=== PATIENT | male | born 1960 | race Caucasian/White ===

== ENCOUNTER 2019-11-28 04:05 | Emergency (ER) | payer OTHER ==
[~2019-11-28] VITALS: Ht 180.3 cm; Wt 117.5 kg
[2019-11-28] MEDS ORDERED: ALLEGRA ALLERG180 MG PO (04:19)
[2019-11-28] MEDS ORDERED: CLARITIN10 M3 PO (04:20)
[2019-11-28] MEDS ORDERED: FLONASE 0.05%50 MCG NARES (04:21)
[2019-11-28 05:19] LABS: ABSOLUTE EOSINOPHILS 0.2 thou/uL (0.0-0.7); ABSOLUTE LYMPHOCYTES 1.2 thou/uL (0.8-5.3); ABSOLUTE MONOCYTES 0.4 thou/uL (0.0-1.2); ABSOLUTE NEUTROPHILS 5.8 thou/uL (1.6-8.1); BASOPHILS 0.4 %; EOSINOPHILS 2.2 %; HEMOGLOBIN 15.5 gm/dL (14.0-18.0); LYMPHOCYTES 16.1 %; MCH 32.9 pg (26.0-34.0); MCV 91.4 fL (80.0-100.0); MONOCYTES 4.8 %; MPV 7.9 fl. (7.2-11.1); NUCLEATED RBCS 0 /100WBC; PLATELET COUNT* 187 thou/uL (150-400); POLYS 76.5 %; RBC 4.71 mil/uL (4.50-6.00); RDW-CV 12.8 % (10.5-14.5); WBC 7.6 thou/uL (4.0-11.0)
[2019-11-28 05:27] LABS: URINE BILIRUBIN NEGATIVE (Negative); URINE BLOOD NEGATIVE (Negative); URINE CLARITY CLEAR; URINE COLOR YELLOW; URINE GLUCOSE-RANDOM NEGATIVE (Negative); URINE KETONES TRACE (Negative); URINE LEUKOCYTES-REFLEX NEGATIVE (Negative); URINE NITRITE-REFLEX NEGATIVE (Negative); URINE PROTEIN NEGATIVE (Negative); URINE UROBILINOGEN 0.2 E.U./dl (0.2-1.0)
[2019-11-28 05:28] LABS: APTT 27.4 Seconds (25.0-31.3); CALCIUM 8.4 mg/dL (8.5-10.1); CREATININE 0.9 mg/dL (0.6-1.3); PROTIME 10.4 Seconds (9.20-11.50)
[2019-11-28 05:39] LABS: ALBUMIN 3.8 g/dL (3.4-5.0); TOTAL BILIRUBIN 0.5 mg/dL (<0.1-1.0)
[2019-11-28 06:19] VITALS: BP 165/95
--- NOTE | 2019-11-28 10:19 | EKG ---
[place] [address] ELECTROCARDIOGRAM REPORT Name: PATRICKJESSICAMEHDI FELICIANO Room: [facility]#: [id number] Admission: 11/28/19 Attend Phys: Discharge: 11/28/19 Date of : 58 Date of Service: 11/28/19 0417 Report #: [id number] THIS REPORT FOR: //name// [facility] ED Test Date: 2019-11-28 Test Time: 04:17:41 Pat Name: JESSICA NGUYEN Department: Room: Gender: Convention Planner: : 1960 Requested By: Brad Castrejon Order Number: [id number] MD: Rafi Fuentes Measurements Intervals [place] Rate: 79 P: 34 VT: 173 QRS: -26 QRSD: 101 T: 28 QT: 389 QTc: 447 Interpretive Statements Sinus rhythm Borderline left axis deviation RSR' in V1 or V2, right VCD or RVH No previous ECG available for comparison Electronically Signed On 11-28-2019 10:19:33 CDT by Rafi Fuentes [email or web address] <ELECTRONICALLY SIGNED> By: Rafi Fuentes MD, [facility] 11/28/19 1019 0417 0417 Rafi Fuentes MD, [facility] /EPI
== END 2019-11-28 06:20 | disposition home or self-care (01) ==
LOC: M.ERS 04:05
PROVIDERS: Family Medicine
DX: I10 Essential (primary) hypertension (principal); R00.2 Palpitations; Z88.8 Allergy status to other drugs, medicaments and biological substances

== ENCOUNTER 2020-09-07 23:14 | Inpatient (IN) | payer OTHER ==
[~2020-09-07] VITALS: Ht 27.9 cm; Wt 133.8 kg
[~2020-09-07 23:14] MED LIST: ALLEGRA ALLERG180 MG PO; CLARITIN10 M3 PO; FLONASE 0.05%50 MCG NARES
[2020-09-07 23:45] VITALS: BP 179/96
[2020-09-07 23:49] LABS: ABSOLUTE EOSINOPHILS 0.2 thou/uL (0.0-0.7); ABSOLUTE LYMPHOCYTES 2.6 thou/uL (0.8-5.3); ABSOLUTE MONOCYTES 0.6 thou/uL (0.0-1.2); ABSOLUTE NEUTROPHILS 4.4 thou/uL (1.6-8.1); BASOPHILS 0.5 %; CREATININE 1.1 mg/dL (0.6-1.3); EOSINOPHILS 2.4 %; HEMATOCRIT 41.5 % (42.0-52.0); LYMPHOCYTES 33.4 %; MCH 33.2 pg (26.0-34.0); MCHC 36.1 g/dL (28.0-37.0); MCV 91.9 fL (80.0-100.0); MONOCYTES 7.7 %; MPV 7.9 fl. (7.2-11.1); NUCLEATED RBCS 0 /100WBC; PLATELET COUNT* 194 thou/uL (150-400); POTASSIUM 3.3 mmol/L (3.5-5.1); RBC 4.52 mil/uL (4.50-6.00); RDW-CV 12.9 % (10.5-14.5); WBC 7.9 thou/uL (4.0-11.0)
[2020-09-07] MEDS ORDERED: VERAPAMIL E.R240 M1 PO (23:55)
[2020-09-07] MEDS ORDERED: KATERZIA1 MG/1 ML PO (23:55)
[2020-09-07] MEDS ORDERED: CHLORTHALIDONE25 MG PO (23:56)
[2020-09-08] VITALS (22 sets, daily range): BP systolic 100–181; BP diastolic 44–101
[2020-09-08] LABS: ALBUMIN 3.7 g/dL (3.4-5.0); TOTAL BILIRUBIN 0.5 mg/dL (<0.1-1.0); TOTAL PROTEIN 7.5 g/dL (6.4-8.2)
--- NOTE | 2020-09-08 00:24 | NUR ---
STEMI ACTIVATED AT 2323. SEE STEMI FLOWSHEET
[2020-09-08 08:36] LABS: ANION GAP 16 mmol/L (7-16); BUN 22 mg/dL (7-18); CALCIUM 8.3 mg/dL (8.5-10.1); CHLORIDE 103 mmol/L (98-107); CHOLESTEROL 174 mg/dL (<200); CO2 20 mmol/L (21-32); CREATININE 1.1 mg/dL (0.6-1.3); GLUCOSE 172 mg/dL (70-99); HDL CHOLESTEROL 40 mg/dL (>40); LDL CHOLESTEROL 93 mg/dL (<100); POTASSIUM 3.8 mmol/L (3.5-5.1); SODIUM 139 mmol/L (136-145); TC:HDL 4.4 Ratio (Not establshd); TRIGLYCERIDE 206 mg/dL (<150); VLDL 41 mg/dL (<40)
[2020-09-08 08:39] LABS: SERUM ASSESSMENT Clear
--- NOTE | 2020-09-08 13:09 | NUR ---
Spoke with patient and (Marlen/"Argenis") at bedside and introduced role of CM. Patient admitted for Stemi. Went to cath lab manager this morning and 2 stents were placed. Patient lives at home in a house with his . There are 2 stairs to enter the home from the garage. There are more stairs inside however the patients bedroom is on the main level. Patient was independent with ADLs prior to admisson. Patient was working and driving. No hx of DME, O2, HH, Rehab/SNF, dialysis, BHS or infusion therapy. PCP is Bello Nick ([place], [place]). Tentative discharge planned for tomorrow with outpatient follow up with cardiology. Patient will need another stent. No dc needs anticipated. CM to continue to follow
--- NOTE | 2020-09-08 14:28 | 2DMMODE ---
[place] [address] 2 D/M-MODE ECHOCARDIOGRAM Name: JESSICA NGUYEN Room: [facility] ADM IN M.Gina.#: [id number] Admission: 09/08/20 Attend Phys: Natasha Sanders Discharge: Date of : 58 Date of Service: 09/08/20 1427 Report #: [id number] THIS REPORT FOR: cc: FAM - No family physician/PCP FAM - No family physician/PCP Rafi Fuentes MD [facility] ~ APPROVED REPORT Study performed: 09/08/2020 09:21:39 EXAM: Comprehensive 2D, Doppler, and color-flow Echocardiogram Patient Location: In-Patient Room #: 005 Status: routine BSA: 2.49 HR: 84 bpm BP: 131/80 mmHg Rhythm: NSR Other Information Study Quality: Good Indications Acute FL 2D Dimensions IVSd: 11.61 (7-11mm) LVOT Diam: 19.92 (18-24mm) LVDd: 48.91 mm PWd: 9.53 (7-11mm) Ascending Ao: 32.20 (22-36mm) LVDs: 25.21 (25-40mm) Aortic Root: 34.94 mm Volumes Left Atrial Volume (Systole) LA ESV Index: 26.80 mL/m2 Aortic Valve AoV Peak William.: 1.73 m/s AO Peak Gr.: 11.96 mmHg LVOT Max P.85 mmHg AO Mean Gr.: 6.30 mmHg LVOT Mean P.06 mmHg LVOT Max V: 1.57 m/s AO V2 VTI: 29.75 cm LVOT Mean V: 1.04 m/s CHEN (VTI): 3.01 cm2 LVOT V1 VTI: 28.76 [place] [address] 2 D/M-MODE ECHOCARDIOGRAM Name: JESSICA NGUYEN Room: [address] IN ..#: [id number] Admission: 09/08/20 Attend Phys: Natasha Sanders Discharge: Date of : 58 Date of Service: 09/08/20 1427 Report #: [id number] Mitral Valve E/A Ratio: 0.84 MV Decel. Time: 219.63 ms MV E Max William.: 0.82 m/s MV PHT: 63.69 ms MVA (PHT): 3.45 cm2 TDI E/Lateral E': 5.47 E/Medial E': 8.20 Medial E' William.: 0.10 m/s Lateral E' William.: 0.15 m/s Pulmonary Valve PV Peak William.: 1.20 m/s PV Peak Gr.: 5.77 mmHg Left Ventricle The left ventricle is normal size. There is normal LV segmental wall motion. There is normal left ventricular wall thickness. The left ventricular systolic function is normal. The left ventricular ejection fraction is within the normal range. LVEF is 60-65%. Grade I - abnormal relaxation pattern. Right Ventricle The right ventricle is normal size. The right ventricular systolic function is normal. Atria The left atrium size is normal. The right atrium size is normal. Aortic Valve The aortic valve is normal in structure. No aortic regurgitation is present. There is no aortic valvular stenosis. Mitral Valve The mitral valve is normal in structure. There is no mitral valve regurgitation noted. No evidence of mitral valve stenosis. Tricuspid Valve The tricuspid valve is normal in structure. Trace tricuspid regurgitation. Unable to assess PA pressure. Pulmonic Valve Pulmonic valve is not well [place] [address] 2 D/M-MODE ECHOCARDIOGRAM Name: JESSICA NGUYEN Room: [address] IN [facility]#: [id number] Admission: 09/08/20 Attend Phys: Natasha Sanders Discharge: Date of : 58 Date of Service: 09/08/20 1427 Report #: [id number] The aortic root is normal in size. IVC is normal in size and collapses >50% with inspiration. Pericardium There is no pericardial effusion. <Conclusion> The left ventricular systolic function is normal. The left ventricular ejection fraction is within the normal range. <ELECTRONICALLY SIGNED> By: Rafi Fuentes MD, [facility] 09/08/20 1427 142 142 Rafi Fuentes MD, FAC /INF
--- NOTE | 2020-09-08 14:59 | EKG ---
[place] [address] ELECTROCARDIOGRAM REPORT Name: PATRICKJESSICAMEHDI FELICIANO Room: [address] ADM IN M.R.#: [id number] Admission: 09/08/20 Attend Phys: Natasha Sanders Discharge: Date of : 58 Date of Service: 09/08/20 1041 Report #: [id number] THIS REPORT FOR: //name// [facility] Test Date: 2020-09-08 Test Time: 10:41:42 Pat Name: JESSICA NGUYEN Department: Room: [facility] Gender: M Service Center Assistant: THERESE : 1960 Requested By: Benjamin Moyer Order Number: [id number] Reading MD: Rafi Fuentes Measurements Intervals [place] Rate: 91 P: 47 MD: 181 QRS: -22 QRSD: 110 T: 44 QT: 369 QTc: 455 Interpretive Statements Sinus rhythm Ventricular premature complex Borderline left axis deviation Compared to ECG 11/28/2019 04:17:41 Ventricular premature complex(es) now present Electronically Signed On 09-08-2020 14:59:37 CDT by Rafi Fuentes [email or web address] <ELECTRONICALLY SIGNED> By: Rafi Fuentes MD, FAC 09/08/20 1459 1041 1041 Rafi Fuentes MD, [facility] /EPI
--- NOTE | 2020-09-08 16:55 | CARD ---
[address] [address] CARDIAC CATH REPORT Name: JESSICA NGUYEN Room: [address] IN .R.#: [id number] Admission: 09/08/20 Attend Phys: Benjamin Moyer MD, Discharge: Date of : 58 Report #: [id number] THIS REPORT FOR: cc: FAM - No family physician/PCP FAM - No family physician/PCP Benjamin Moyer MD [facility] ~ APPROVED REPORT Study performed: 09/07/2020 23:50:38 Patient Details Patient Status: ED Room #: The patient is a 60 year-old male Event Personnel Benjamin Moyer Marshmallow Maker, Luana Lechuga RN Pararescue Craftsman, Ada Johnston RTR Monitor, Naila Tsang RTR Scrub Procedures Performed Art Access - R femoral artery , Left Heart Cath w/or w/o Coronaries LHC , STEMI/AMI ALEXANDER Place w/wo Plasty Single RPLA , Hemostasis w/ Mynx Indication STEMI Risk Factors Hypercholesterolemia, Hypertension Admission/Lab Medications/Medications given during procedure Benadryl IV 50 mg, Solumedrol IV 125 mg, Angiomax IV 19.5 ml, Angiomax Drip IV 44.6 ml per hr, Effient PO 60 mg, Aspirin PO 162 mg Procedure Narrative The patient was brought emergently to the Cardiac Catheterization Laboratory and was prepped and draped in a sterile manner. The right femoral was infiltrated with 2% Lidocaine subcutaneous anesthesia. IV conscious sedation was used throughout procedure with appropriate monitoring and was performed in the presence of a registered nurse who was an independent trained observer other than the physician performing the procedure. A 6F Ultimum sheath was inserted into the right femoral artery. Coronary [place] [address] CARDIAC CATH REPORT Name: PATRICKJESSICAMEHDI FELICIANO Room: [address]#: [id number] Admission: 09/08/20 Attend Phys: Benjamin Moyer MD, Discharge: Date of : 58 Report #: [id number] coronary diagnostic catheters. The right coronary system was accessed and visualized with a 6F JR4 catheter. The left coronary system was accessed and visualized with a 6F JL4 catheter. The left ventricle was accessed and visualized with a 6F Pigtail catheter. Left ventricular/Aortic Valve gradient assessed via catheter pullback. Pre-demployment femoral angiogram was performed . Closure device was deployed with a 6 Fr Mynx. The patient tolerated the procedure well and there were no complications associated with the procedure. There was no hematoma. Intraoperative Conscious Sedation Sedation start time: 12:23 am Case end Time: 01:04 am Fentanyl 25 mcg Versed 2 mg Fluoro Time: 13.4 minutes Dose: DAP 060822 cGycm2 3049 mGy Contrast Type and Amount: Visipaque 300 ml Coronary Angiography The patient's coronary anatomy is right dominant. Diagnostic Cath Left Main 0% narrowing LAD 80% tubular mid vessel stenosis with 75% tubular proximal first diagonal stenosis Circumflex Nondominant vessel with 30% proximal and distal narrowing Right Coronary Large dominant vessel with 40% proximal narrowing and 100% occlusion of the proximal portion of the prominent postero- lateral branch of the distal right coronary artery Left Ventriculography Left Ventriculography was not performed. Hemodynamics The aortic pressure is 137/75 mmHg with a mean of 102 mmHg. The left ventricular pressure is 137/1 mmHg with a mean of mmHg. The left ventricular end diastolic pressure is 18 mmHg. There was no gradient across the aortic valve upon pullback. PCI Technique Lesion Anticoagulation was achieved with Angiomax. Percutaneous coronary intervention was performed on the Postero- lateral branch of the distal right coronary artery. [place] [address] CARDIAC CATH REPORT Name: JESSICA NGUYEN Room: [address]#: [id number] Admission: 09/08/20 Attend Phys: Benjamin Moyer MD, Discharge: Date of : 58 Report #: [id number] intervention was 100% with TIGRE 0 flow. A 6F JR 4.0 Guide Catheter was used to engage the right ostium. A BMW 190cm Interventional Guidewire was used to cross the lesion. BALLOON DILATION A Balloon catheter Mini Trek RX 2.0 X 12 was inserted and inflated up to 12.00atm for 10seconds. Additional Inflation: 12.00atm for 6seconds. Additional Inflation: 14.00atm for 15seconds. STENT DEPLOYMENT A drug-eluting stent Elliot RX Stent 2.0X15mm was inserted and inflated up to 12.00atm for 11seconds. Additional Inflation: 15.00atm for 12seconds. Additional Inflation: 17.00atm for 10seconds. A drug-eluting stent Elliot RX Stent 2.31x05oj was inserted and inflated up to 15 rita for 16 seconds; and 17 rita for 11 seconds. Final angiography reveals 0 % stenosis with TIGRE 3 flow. Conclusion 1. Acute inferior wall STEMI 2. Significant multivessel coronary artery disease characterized by the following: A 40% proximal right coronary narrowing with 100% occlusion of the proximal portion of the postero- lateral branch of the distal right coronary artery B 80% tubular mid LAD stenosis with 75% tubular first diagonal stenosis C 30% proximal and distal narrowing of the nondominant circumflex 2. Moderate elevation of left ventricular end-diastolic pressure at rest 3 successful PCI with deployment of sequential drug-eluting stents at the site of 100% occlusion in the postero- lateral branch of the dominant right coronary artery with 0% residual narrowing following stent deployment no residual thrombus and TIGRE-3 flow to the distal vessel Recommendations [place] [address] CARDIAC CATH REPORT Name: JESSICA NGUYEN Room: [address] IN M..#: [id number] Admission: 09/08/20 Attend Phys: Benjamin Moyer MD, Discharge: Date of : 58 Report #: [id number] Aggressive Medical Therapy Medications Administered Aspirin (any) Prasugrel Diagnostic Cath Approved by: Benjamin Moyer MD Date/Time: 09/08/2020 16:50:30 <ELECTRONICALLY SIGNED> By: Benjamin Moyer MD, FACC 09/08/20 1654 1654 1654Jocasey Moyer MD, FACC /INF
--- NOTE | 2020-09-08 17:03 | EKG ---
[place] [address] ELECTROCARDIOGRAM REPORT Name: JESSICA NGUYEN Room: [address] ADM IN M.R.#: [id number] Admission: 09/08/20 Attend Phys: Natasha Sanders Discharge: Date of : 58 Date of Service: 09/07/20 2321 Report #: [id number] THIS REPORT FOR: //name// [facility] ED Test Date: 2020-09-07 Test Time: 23:21:02 Pat Name: JESSICA NGUYEN Department: Room: [facility] Gender: M Spring Inspector: [facility] : 1960 Requested By: Elidia Hunt Order Number: [id number] MD: Alfredito Kitchen Measurements Intervals [place] Rate: 94 P: 69 NC: 172 QRS: 51 QRSD: 99 T: 81 QT: 366 QTc: 458 Interpretive Statements Sinus rhythm Inferior infarct, acute (RCA) Probable RV involvement, suggest recording right precordial leads Baseline wander in lead(s) II,III,aVF Compared to ECG 11/28/2019 04:17:41 Myocardial infarct finding now present Right ventricular hypertrophy no longer present Electronically Signed On 09-08-2020 17:03:23 CDT by Alfredito Kitchen [email or web address] <ELECTRONICALLY SIGNED> By: Alfredito Kitchen MD, [facility] 09/08/20 1703 20 232 Alfredito Kitchen MD, [facility] /EPI
--- NOTE | 2020-09-08 20:03 | NUR ---
PT TX TO ROOM 101 VIA WC FROM ICU AT APPROX 1600, REPORT RECEIVED FROM CARLOS SIERRA. PT AOX4, NO C/O CHEST PAIN, AD ESTEPHANIA, IN ROOM AND UPDATED ON POC. PT ORIENTED TO ROOM AND CALL LIGHT, GOAL IS TO REMAIN FREE FROM CHEST PAIN, SHOULD DC TOMORROW
[2020-09-09 02:07] LABS: GLYCOHEMOGLOBIN (HGB A1C) 5.8 % (4.8-5.6)
[2020-09-09 04:15] VITALS: BP 131/73
--- NOTE | 2020-09-09 05:21 | NUR ---
ASSUMED CARE OF PT AFTER REPORT AT 1930. PT A&OX4. VSS. PYSICAL ASSESSMENT COMPLETED AND CHARTED. PT ON RA. PT TRACING SR ON TELE. PT UPADLIB TO RESTROOM. POST CATH SITE TO RIGHT GROIN C/D/I. PT DENIES ANY PAIN. CALL LIGHT WITHIN REACH.
[2020-09-09 05:38] LABS: HEMATOCRIT 36.5 % (42.0-52.0); MCHC 35.7 g/dL (28.0-37.0); MCV 92.4 fL (80.0-100.0); MPV 8.1 fl. (7.2-11.1); RBC 3.95 mil/uL (4.50-6.00); RDW-CV 13.1 % (10.5-14.5); WBC 12.5 thou/uL (4.0-11.0)
[2020-09-09 06:15] LABS: CALCIUM 8.2 mg/dL (8.5-10.1); POTASSIUM 3.5 mmol/L (3.5-5.1); TOTAL BILIRUBIN 0.4 mg/dL (<0.1-1.0); TOTAL PROTEIN 6.5 g/dL (6.4-8.2)
[2020-09-09 07:49] VITALS: BP 114/60
[2020-09-09] MEDS ORDERED: EFFIENT10 MG PO (08:07)
[2020-09-09] MEDS ORDERED: LIPITOR40 MG PO (08:08)
[2020-09-09] MEDS ORDERED: METOPROLOL TART25 MG PO (08:08)
[2020-09-09] MEDS ORDERED: BAYER CHEWABLE81 MG PO (08:10)
[2020-09-09] MEDS ORDERED: LISINOPRIL10 MG PO (08:49)
[2020-09-09 10:32] VITALS: BP 114/60
[2020-09-09 11:49] VITALS: BP 114/60
--- NOTE | 2020-09-09 12:03 | EKG ---
[place] [address] ELECTROCARDIOGRAM REPORT Name: JESSICA NGUYEN Room: [address] ADM IN M.R.#: [id number] Admission: 09/08/20 Attend Phys: Natasha Sanders Discharge: Date of : 58 Date of Service: 09/09/20 0348 Report #: [id number] THIS REPORT FOR: //name// [facility] Test Date: 2020-09-09 Test Time: 03:48:50 Pat Name: JESSICA NGUYEN Department: Room: [facility] Gender: M Dip Painter: FANI : 1960 Requested By: Benjamin Moyer Order Number: [id number] Reading MD: Alfredito Kitchen Measurements Intervals [place] Rate: 66 P: 59 [place]: 188 QRS: -16 QRSD: 104 T: 9 QT: 389 QTc: 408 Interpretive Statements Sinus rhythm Borderline left axis deviation Baseline wander in lead(s) V4 Compared to ECG 09/08/2020 10:41:42 Ventricular premature complex(es) no longer present Electronically Signed On 09-09-2020 12:03:17 CDT by Alfredito Kitchen [email or web address] <ELECTRONICALLY SIGNED> By: Alfredito Kitchen MD, FACC 09/09/20 1203 0348 0348 Alfredito Kitchen MD, FAC /EPI
[2020-09-09 12:27] LABS: ABSOLUTE EOSINOPHILS 0.1 thou/uL (0.0-0.7); ABSOLUTE MONOCYTES 0.9 thou/uL (0.0-1.2); ABSOLUTE NEUTROPHILS 9.5 thou/uL (1.6-8.1); BASOPHILS 0.4 %; EOSINOPHILS 0.4 %; HEMATOCRIT 38.2 % (42.0-52.0); HEMOGLOBIN 13.6 gm/dL (14.0-18.0); LYMPHOCYTES 15.9 %; MCH 33.2 pg (26.0-34.0); MCHC 35.6 g/dL (28.0-37.0); MCV 93.3 fL (80.0-100.0); MONOCYTES 7.3 %; MPV 8.4 fl. (7.2-11.1); NUCLEATED RBCS 0 /100WBC; PLATELET COUNT* 204 thou/uL (150-400); RBC 4.09 mil/uL (4.50-6.00); RDW-CV 13.1 % (10.5-14.5); WBC 12.5 thou/uL (4.0-11.0)
--- NOTE | 2020-09-09 14:40 | NUR ---
Reviewed discharge teaching with patient and ; verbalized understanding. IVs and security monitor dc'd. Discharged from unit per WC.
--- NOTE | 2020-09-09 15:01 | NUR ---
PLAN OF CARE: PHYSICIAN INFORMS OF PLAN FOR THE PT TO D/C HOME TODAY WITH SELF-CARE. NO CM D/C PLANNING NEEDS ANTICIPATED. CM WILL REMAIN AVAILABLE TO ASSIST AND FOLLOW NEEDED.
--- NOTE | 2020-09-15 09:13 | H ---
[place] [address] HISTORY AND PHYSICAL Name: JESSICA NGUYEN Room: [address] IN M.R.#: [id number] Admission: 09/08/20 Attend Phys: Benjamin Moyer MD, Discharge: 09/09/20 Date of : 58 Report #: [id number] THIS REPORT FOR: cc: FAM - No family physician/PCP FAM - No family physician/PCP Benjamin Moyer MD [facility] ~ ADMIT DATE: 09/08/2020 HISTORY OF PRESENT ILLNESS: The patient is a very pleasant 60-year-old male with hypertension and obesity. On Tuesday evening, he noted mild chest tightness, which abated. This evening at approximately 10:30-10:45, he developed severe central chest tightness and sought evaluation in the [facility] ER. He was noted to have significant chest tightness and EKG revealed evidence for acute inferior wall myocardial infarction with ST segment elevation in the inferior leads. The pain persisted despite aspirin and heparin. I was asked to see the patient in this context. At the time of my assessment, he continued to have significant chest discomfort. He denies shortness of breath or nausea. There was no diaphoresis. Risk factors include hypertension. He denies diabetes, cigarette smoking, known lipid disorder, or family history of premature coronary disease in the first-degree relatives at premature ages. There is no known peripheral vascular disease. He is on muti-agent antihypertensive therapy including amlodipine, verapamil and chlorthalidone. PAST MEDICAL HISTORY: Remarkable for: 1. Hypertension. 2. Obesity. SOCIAL HISTORY: He is . He is a nonsmoker. PHYSICAL EXAMINATION: GENERAL: Reveals a moderately distressed middle-aged male, who is overweight. VITAL SIGNS: Blood pressure is 140/70, pulse rate is 78 and regular, respirations are 18 per minute. Jugular venous pressure is normal. CHEST: Clear. CARDIAC: Reveals normal first and second heart sounds with an S4 gallop without rubs or murmurs. ABDOMEN: Obese. EXTREMITIES: Without edema and intact femoral, [place] [address] HISTORY AND PHYSICAL Name: JESSICA NGUYEN Room: [address]#: [id number] Admission: 09/08/20 Attend Phys: Benjamin Moyer MD, Discharge: 09/09/20 Date of : 58 Report #: [id number] LABORATORY DATA: EKG reveals acute inferior wall injury. IMPRESSION: 1. Acute inferior wall ST segment elevation myocardial infarction. 2. Coronary artery disease. 3. Hypertension. 4. Anxiety. 5. Obesity. PLAN: Given his data, I elected to proceed with cardiac catheterization, which revealed total occlusion of the distal right coronary artery and posterolateral branch with TIGRE 0 flow to that distal circulation. There was 80% tubular mid LAD narrowing and 75% proximal first diagonal stenosis. There was 30% mid circumflex narrowing, this being a nondominant vessel. I elected to proceed with PCI, deploying 2 drug-eluting stents in the distal right coronary artery with 0% residual narrowing at the site of previous total occlusion with TIGRE 3 flow in the distal vessel. No residual thrombus. The patient was placed on Angiomax and it was continued 2 hours post-procedurally. He was started on dual antiplatelet therapy, statin, DENNIS inhibition and beta blockade and transferred to the ICU. Critical care time is 40 minutes from 0100 to 0140 on 09/08/2020. <ELECTRONICALLY SIGNED> By: Benjamin Moyer MD, FACC 09/15/20 0913 0041 [id number] Moyer MD, FACC /nt
== END 2020-09-09 14:40 | disposition home or self-care (01) | DRG 246 ==
LOC: M.ERS 23:14 → M.TBA-CV 09-08 00:07 → M.CL 09-08 00:07 → M.ERS 09-08 00:07 → M.TBA-ER 09-08 01:29 → M.ORTHSURG 09-08 01:29 → M.ICU 09-08 01:29 → M.ORTHSURG 09-08 16:46
PROVIDERS: Emergency Medicine; Internal Medicine; Registered Nurse; ADMIT Internal Medicine; ATTEND Internal Medicine
PROC: 027035Z Dilation of Coronary Artery, One Artery with Two Drug-eluting Intraluminal Devices, Percutaneous Approach (ICD-10-PCS; principal; 2020-09-08)
PROC: B211YZZ Fluoroscopy of Multiple Coronary Arteries using Other Contrast (ICD-10-PCS; principal; 2020-09-08)
PROC: 4A023N7 Measurement of Cardiac Sampling and Pressure, Left Heart, Percutaneous Approach (ICD-10-PCS; principal; 2020-09-08)
DX: I21.19 ST elevation (STEMI) myocardial infarction involving other coronary artery of inferior wall (principal); I50.31 Acute diastolic (congestive) heart failure; I11.0 Hypertensive heart disease with heart failure; I25.10 Atherosclerotic heart disease of native coronary artery without angina pectoris; F41.9 Anxiety disorder, unspecified; E66.9 Obesity, unspecified; R73.9 Hyperglycemia, unspecified; E78.5 Hyperlipidemia, unspecified; Z79.899 Other long term (current) drug therapy

== ENCOUNTER 2020-09-17 09:16 | Observation (INO) | payer OTHER ==
[~2020-09-17] VITALS: Ht 180.3 cm; Wt 127.0 kg
[2020-09-17] VITALS (13 sets, daily range): BP systolic 109–134; BP diastolic 64–81
--- NOTE | ~2020-09-17 | H ---
[address] [address] HISTORY AND PHYSICAL Name: JESSICA NGUYEN JODIE Room: [address] Nicole Quintana#: [id number] Admission: 09/17/20 Attend Phys: Benjamin Moyer MD, Discharge: 09/18/20 Date of : 58 Report #: [id number] THIS REPORT FOR: cc: Bello Finnegan MD, Bruce D. MD [facility],Medical Records Staff ~ Please refer to the History and Physical performed in the physician's office. By: [id number] Records Staff [facility] /FINA
[~2020-09-17 09:16] MED LIST changes: +BAYER CHEWABLE81 MG PO; +CHLORTHALIDONE25 MG PO; +EFFIENT10 MG PO; +KATERZIA1 MG/1 ML PO; +LIPITOR40 MG PO; +LISINOPRIL10 MG PO; +METOPROLOL TART25 MG PO; +VERAPAMIL E.R240 M1 PO
[2020-09-17 09:52] LABS: HEMATOCRIT 38.9 % (42.0-52.0); HEMOGLOBIN 13.9 gm/dL (14.0-18.0); MCH 33.3 pg (26.0-34.0); MCHC 35.8 g/dL (28.0-37.0); MCV 92.9 fL (80.0-100.0); RBC 4.18 mil/uL (4.50-6.00); RDW-CV 12.7 % (10.5-14.5); WBC 8.8 thou/uL (4.0-11.0)
[2020-09-17 10:01] LABS: CALCIUM 8.3 mg/dL (8.5-10.1); CREATININE 1.2 mg/dL (0.6-1.3); POTASSIUM 4.2 mmol/L (3.5-5.1)
[2020-09-17 10:06] LABS: ALBUMIN 3.6 g/dL (3.4-5.0); TOTAL BILIRUBIN 0.5 mg/dL (<0.1-1.0); TOTAL PROTEIN 6.9 g/dL (6.4-8.2)
[2020-09-17 10:47] LABS: PROTIME 10.3 Seconds (9.20-11.50)
--- NOTE | 2020-09-17 14:06 | CARD ---
[address] [address] CARDIAC CATH REPORT Name: JESSICA NGUYEN Room: [address] Nicole Quintana#: [id number] Admission: 09/17/20 Attend Phys: Benjamin Moyer MD, Discharge: Date of : 58 Report #: [id number] THIS REPORT FOR: cc: Bello Finnegan MD, Bruce D. MD Holkins,Benjamin Bergeron MD [facility] ~ APPROVED REPORT Study performed: 09/17/2020 11:10:32 Patient Details Patient Status: Out-Patient Room #: The patient is a 60 year-old male Event Personnel Naila Tsang RTR Scrub, Se Monet RTR Monitor, Jaja Elmore RN RN, Benjamin Moyer Automation Architect Procedures Performed Left Heart Cath w/or w/o Coronaries [id number] [facility] w/wo Plasty Single LAD 778191 [facility] Place w/wo Plasty Addl BR DIAG 1 C9601 DESADDL Hemostasis w/ Angioseal Indication Unstable angina Risk Factors Obesity, Hypercholesterolemia, Hypertension Previous Procedures/Diagnoses Previous PCI, Previous MA Admission/Lab Medications/Medications given during procedure Fentanyl IV 25 mcg, Midazolam (Versed) IV 2 mg, Lidocaine Subcut 20 ml, Angiomax IV 19 ml, Angiomax IV 24.55 ml per hr, Midazolam (Versed) IV 1 mg, Aspirin PO 81 mg, Effient PO 30 mg Procedure Narrative The patient was brought electively to the Cardiac Catheterization Laboratory and was prepped and draped in a sterile manner. The right femoral was infiltrated with 2% Lidocaine subcutaneous anesthesia. IV conscious sedation was used throughout procedure with appropriate monitoring and was performed in the presence of a registered nurse who was an independent trained observer [place] [address] CARDIAC CATH REPORT Name: PATRICKJESSICAMEHDI FELICIANO Room: [address] Nicole Quintana#: [id number] Admission: 09/17/20 Attend Phys: Benjamin Moyer MD, Discharge: Date of : 58 Report #: [id number] performing the procedure. A [place] 6 FR sheath was inserted into the right femoral artery. Coronary angiography was performed using coronary diagnostic catheters. The right coronary system was accessed and visualized with a Diagnostic JR4 6Fr catheter. The left coronary system was accessed and visualized with a Diagnostic JL4 6Fr catheter. The left ventricle was accessed and visualized with a Diagnostic Pigtail 6Fr catheter. Left ventricular/Aortic Valve gradient assessed via catheter pullback. Pre-demployment femoral angiogram was performed . Closure device was deployed with a 6 Fr Angioseal. The patient tolerated the procedure well and there were no complications associated with the procedure. There was no hematoma. Intraoperative Conscious Sedation Sedation start time: 1126 Case end Time: 1230 Fentanyl 100 mcg Versed 5 mg Fluoro Time: 17.8 minutes Dose: DAP 041557 cGycm2 3060.23 mGy Contrast Type and Amount: Visipaque 315 ml Coronary Angiography The patient's coronary anatomy is right dominant. Diagnostic Cath Left Main 0% narrowing LAD 90% tubular mid vessel stenosis with 75% tubular first diagonal narrowing and multiple 50% distal LAD narrowings Circumflex Nondominant vessel with 30% mid vessel narrowing Right Coronary Large dominant vessel with 50% proximal narrowing and a widely patent postero- lateral branch stent Left Ventriculography Left Ventriculography was not performed. Hemodynamics The aortic pressure is 147/55 mmHg with a mean of 79 mmHg. The left ventricular pressure is 112/3 mmHg with a mean of mmHg. The left ventricular end diastolic pressure is 16 mmHg. There was no gradient across the aortic valve upon pullback. PCI Technique Lesion Anticoagulation was achieved with Angiomax. [place] [address] CARDIAC CATH REPORT Name: JESSICA NGUYEN [address]: [address] [id number] Admission: 09/17/20 Attend Phys: Benjamin Moyer MD, Discharge: Date of : 58 Report #: [id number] intervention was performed on the mid left anterior descending artery segment. The lesion stenosis prior to intervention was 90% with TIGRE 3 flow. A 6F XB LAD 3.5 Guide Catheter was used to engage the Left ostium. A IG: ProwaterFlex 180CM Interventional Guidewire was used to cross the lesion. BALLOON DILATION A Balloon catheter Trek RX 2.5 X 15 was inserted and inflated up to 16.00atm for 12seconds. Additional Inflation: 16.00atm for 11seconds. Additional Inflation: 16.00atm for 9seconds. STENT DEPLOYMENT A drug-eluting stent Elliot RX Stent 3.0X22mm was inserted and inflated up to 15.00atm for 14seconds. Additional Inflation: 18.00atm for 11seconds. Additional Inflation: 20.00atm for 9seconds. Final angiography reveals 0 % stenosis with TIGRE 3 flow. COMMENTS The PCI was technically complex by virtue of the LAD/diagonal bifurcation disease. This required wiring of both vessels, significant lesion preparation, and deployment of drug-eluting stents in both the parent LAD and first diagonal branch. PCI Technique Lesion 2 Percutaneous Coronary Intervention was performed on the first diagnonal branch segment. The lesion stenosis prior to intervention was 75% with TIGRE 3 flow. A 6F XB LAD 3.5 Guide Catheter was used to engage the Left ostium. A IG: BMW 190cm Interventional Guidewire was used to cross the lesion. Balloon Dilation A Balloon catheter Euphora SC 2.25x12 was inserted and inflated up to 12.00atm for 12seconds. Stent Deployment A drug-eluting stent [place] RX Stent 2.5X15mm was inserted and inflated up to 10.00atm for 11seconds. Additional Inflation: 12.00atm for 10seconds. Additional Inflation: 15.00atm for 8seconds. Final angiography reveals 10 % stenosis with TIGRE [address] Conclusion [address] [address] CARDIAC CATH REPORT Name: JESSICA NGUYEN Room: [place] [address] ADM Rivera M.R.#: [id number] Admission: 09/17/20 Attend Phys: Benjamin Moyer MD, Discharge: Date of : 58 Report #: [id number] 1. Significant coronary artery disease characterized by the following: A 90% tubular mid LAD stenosis with 75% tubular first diagonal narrowing and multiple 50% distal LAD narrowings B 30% narrowing of the midportion of the nondominant circumflex C 50% proximal right coronary narrowing, this being a dominant vessel with widely patent postero- lateral branch stent 2. Mild elevation of left ventricular end-diastolic pressure at rest 3. Successful PCI with deployment of a drug-eluting stent at the site of 90% tubular mid LAD stenosis with 0% residual narrowing and TIGRE-3 flow to the distal vessel 4. Successful PCI with deployment of drug-eluting stent at the site of 75% first diagonal branch stenosis with 10% residual narrowing and TIGRE-3 flow to the distal vessel Recommendations Cardiac Risk Reduction Program Aggressive Medical Therapy Medications Administered Aspirin (any) Prasugrel Diagnostic Cath Approved by: Benjamin Moyer MD Date/Time: 09/17/2020 13:59:50 <ELECTRONICALLY SIGNED> By: Benjamin Moyer MD, [facility] 09/17/20 1406 1406 1406Benjamin Moyer MD, FAC /INF
--- NOTE | 2020-09-17 14:22 | EKG ---
[place] [address] ELECTROCARDIOGRAM REPORT Name: PATRICKJESSICAMEHDI FELICIANO Room: [address] M.R.#: [id number] Admission: 09/17/20 Attend Phys: Natasha Sanders Discharge: Date of : 58 Date of Service: 09/17/20 1026 Report #: [id number] THIS REPORT FOR: //name// [facility] Test Date: 2020-09-17 Test Time: 10:26:19 Pat Name: JESSICA NGUYEN Department: Room: [facility] Gender: M Woodwork Teacher: VENUS : 1960 Requested By: Benjamin Moyer Order Number: [id number] Reading MD: Benjamin Moyer Measurements Intervals [place] Rate: 57 P: 35 [place]: 188 QRS: -25 QRSD: 103 T: -2 QT: 418 QTc: 407 Interpretive Statements Sinus rhythm RSR' in V1 or V2, right VCD Possible inferior infarct, age indeterminate Minimal ST elevation, anterior leads probably a normal variant Compared to ECG 09/09/2020 03:48:50 RSR' in V1 or V2 now present Myocardial infarct finding now present ST (T wave) deviation now present Electronically Signed On 09-17-2020 14:21:52 CDT by Benjamin Moyer [email or web address] <ELECTRONICALLY SIGNED> By: Benjamin Moyer MD, [facility] 09/17/20 1421 1026 1026 Benjamin Moyer MD, [facility] /EPI
--- NOTE | 2020-09-17 16:14 | EKG ---
[place] [address] ELECTROCARDIOGRAM REPORT Name: JESSICA NGUYEN Room: [address] M.R.#: [id number] Admission: 09/17/20 Attend Phys: Natasha Sanders Discharge: Date of : 58 Date of Service: 09/17/20 1512 Report #: [id number] THIS REPORT FOR: //name// [facility] Test Date: 2020-09-17 Test Time: 15:12:56 Pat Name: JESSICA NGUYEN Department: Room: [facility] Gender: M Dog Catcher: : 1960 Requested By: Benjamin Moyer Order Number: [id number] Reading MD: Benjamin Moyer Measurements Intervals [place] Rate: 55 P: 52 [place]: 175 QRS: -24 QRSD: 98 T: -8 QT: 423 QTc: 405 Interpretive Statements Sinus rhythm Abnormal R-wave progression, early transition Inferior infarct, age indeterminate cannot be excluded Baseline wander in lead(s) V1 Compared to ECG 09/17/2020 10:26:19 ST (T wave) deviation no longer present Myocardial infarct finding still present Electronically Signed On 09-17-2020 16:14:20 CDT by Benjamin Moyer [email or web address] <ELECTRONICALLY SIGNED> By: Benjamin Moyer MD, [facility] 09/17/20 1614 11 151 Benjamin Moyer MD, [facility] /EPI
[2020-09-18] VITALS: BP 109/65
[2020-09-18 04:00] VITALS: BP 104/63
[2020-09-18 04:17] LABS: HEMATOCRIT 34.5 % (42.0-52.0); HEMOGLOBIN 12.7 gm/dL (14.0-18.0); MCHC 36.8 g/dL (28.0-37.0); MCV 92.4 fL (80.0-100.0); MPV 8.1 fl. (7.2-11.1); RBC 3.73 mil/uL (4.50-6.00); RDW-CV 12.8 % (10.5-14.5); WBC 7.9 thou/uL (4.0-11.0)
[2020-09-18 04:43] LABS: ALBUMIN 3.2 g/dL (3.4-5.0); ALKALINE PHOSPHATASE 72 U/L (46-116); ANION GAP 5 mmol/L (7-16); BUN 20 mg/dL (7-18); CALCIUM 8.2 mg/dL (8.5-10.1); CHLORIDE 106 mmol/L (98-107); CHOLESTEROL 124 mg/dL (<200); CO2 30 mmol/L (21-32); CREATININE 1.2 mg/dL (0.6-1.3); GLUCOSE 92 mg/dL (70-99); HDL CHOLESTEROL 32 mg/dL (>40); LDL CHOLESTEROL 50 mg/dL (<100); POTASSIUM 3.7 mmol/L (3.5-5.1); SGOT 14 U/L (15-37); SGPT 23 U/L (30-65); SODIUM 141 mmol/L (136-145); TC:HDL 3.9 Ratio (Not establshd); TOTAL BILIRUBIN 0.6 mg/dL (<0.1-1.0); TOTAL PROTEIN 6.3 g/dL (6.4-8.2); TRIGLYCERIDE 211 mg/dL (<150); VLDL 42 mg/dL (<40)
[2020-09-18 05:13] LABS: SERUM ASSESSMENT CLEAR; TROPONIN-I LEVEL 0.85 ng/mL (<0.06)
[2020-09-18 08:00] VITALS: BP 116/67
[2020-09-18 10:17] VITALS: BP 116/67
--- NOTE | 2020-09-18 13:01 | EKG ---
[place] [address] ELECTROCARDIOGRAM REPORT Name: PATRICKJESSICAMEHDI FELICIANO Room: [address] M.R.#: [id number] Admission: 09/17/20 Attend Phys: Natasha Sanders Discharge: 09/18/20 Date of : 58 Date of Service: 09/18/20 0940 Report #: [id number] THIS REPORT FOR: //name// [facility] Test Date: 2020-09-18 Test Time: 09:40:08 Pat Name: JESSICA NGUYEN Department: Room: [facility] Gender: M Barber Or Beauty Shop Manager: BOLIVAR : 1960 Requested By: Benjamin Moyer Order Number: [id number] Reading MD: Benjamin Moyer Measurements Intervals [place] Rate: 66 P: 50 [place]: 191 QRS: -25 QRSD: 105 T: -24 QT: 395 QTc: 414 Interpretive Statements Sinus rhythm Inferior infarct, age indeterminate Baseline wander in lead(s) V2 Compared to ECG 09/17/2020 15:12:56 No significant changes Electronically Signed On 09-18-2020 13:01:16 CDT by Benjamin Moyer [email or web address] <ELECTRONICALLY SIGNED> By: Benjamin Moyer MD, [facility] 09/18/20 1301 0940 0940 Benjamin Moyer MD, [facility] /EPI
--- NOTE | 2020-09-18 13:07 | D ---
[address] [address] DISCHARGE SUMMARY Name: JESSICA NGUYEN Room: [address] Nicole Quintana#: [id number] Admission: 09/17/20 Attend Phys: Benjamin Moyer MD, Discharge: 09/18/20 Date of : 58 Report #: [id number] THIS REPORT FOR: cc: Bello Finnegan MD, Bruce D. MD Holkins, John M. MD [facility] ~ DATE OF DISCHARGE: 09/18/2020 FINAL DISCHARGE DIAGNOSES: 1. Unstable angina. 2. Coronary artery disease. 3. Status post recent inferior wall myocardial infarction. 4. Hypertension. 5. Hyperlipidemia. 6. Status post percutaneous coronary intervention with stenting. 7. Exogenous obesity. PROCEDURES: 09/17/2020 - left heart catheterization, selective coronary arteriography, and percutaneous coronary intervention with deployment of drug-eluting stents in the mid LAD and first diagonal branch of the LAD. HOSPITAL COURSE: The patient is a very pleasant 60-year-old male who presented slightly less than 2 weeks ago with acute inferior wall infarction and underwent acute PCI with deployment of drug-eluting stent in the prominent posterolateral branch of the distal right coronary artery with a good angiographic result. He had a minimal increase in troponin and a normal global LV function post-procedurally. During that case, he was noted to have a high-grade mid LAD and first diagonal stenosis, which was not approached in the acute setting. Since discharge, he has noted some chest discomfort compatible with angina, but not as severe as that associated with his acute infarct. He has underlying hypertension, hyperlipidemia and weight excess. In this setting, he underwent recatheterization on 09/17/2020, which revealed widely patent posterolateral branch stent in the distal right coronary artery. He had 90% tubular mid LAD stenosis with 75% tubular first diagonal stenosis. I placed one 2.75 x 22 mm Elliot drug-eluting stent in the mid LAD with 0% residual narrowing and one 2.5 x 15 mm [place] drug-eluting stent in the first diagonal branch of the LAD with 10% residual narrowing. The patient did well post-procedurally. Troponin sunil minimally to 0.85. He had no chest pain. The patient ambulated in the hallways without difficulty and there was good hemostasis at the right [place] [address] DISCHARGE SUMMARY Name: JESSICA NGUYEN JODIE Room: [address] Nicole Quintana#: [id number] Admission: 09/17/20 Attend Phys: Benjamin Moyer MD, Discharge: 09/18/20 Date of : 58 Report #: [id number] Laboratory on 09/18 revealed sodium 141, potassium 3.7, BUN 20, creatinine 1.2, glucose 92. Hemoglobin 12.7, white blood cell count 7900 with 184,000 platelets. DISCHARGE MEDICATIONS: He was discharged home on the following medications: Chlorthalidone 25 mg daily, prasugrel 10 mg daily with 30 mg periprocedural dose having been given, atorvastatin 40 mg daily, metoprolol tartrate 25 mg b.i.d., aspirin 81 mg daily, and lisinopril 10 mg daily. I will plan to see the patient in followup in 4 weeks. Therefore, the patient is discharged home in stable condition on the aforementioned medications with followup as described above. <ELECTRONICALLY SIGNED> By: Benjamin Moyer MD, [facility] 09/18/20 1307 0843 [id number] Moyer MD, [facility] /nt
== END 2020-09-18 10:27 | disposition home or self-care (01) ==
LOC: M.CL 09:16 → M.TBA 13:03 → M.2W 16:32
PROVIDERS: ADMIT Internal Medicine; ATTEND Internal Medicine
DX: I25.110 Atherosclerotic heart disease of native coronary artery with unstable angina pectoris (principal); Z20.822 Contact with and (suspected) exposure to COVID-19; I25.2 Old myocardial infarction; I10 Essential (primary) hypertension; E78.5 Hyperlipidemia, unspecified; E66.09 Other obesity due to excess calories; Z68.39 Body mass index [BMI] 39.0-39.9, adult

== ENCOUNTER 2020-09-20 10:56 | Observation (INO) | payer OTHER ==
[~2020-09-20] VITALS: Ht 180.3 cm; Wt 128.4 kg
[2020-09-20 10:58] VITALS: BP 128/47
[2020-09-20 11:22] LABS: ABSOLUTE BASOPHILS 0.1 thou/uL (0.0-0.2); ABSOLUTE EOSINOPHILS 0.2 thou/uL (0.0-0.7); ABSOLUTE LYMPHOCYTES 1.1 thou/uL (0.8-5.3); ABSOLUTE MONOCYTES 0.3 thou/uL (0.0-1.2); BASOPHILS 0.7 %; EOSINOPHILS 2.3 %; HEMATOCRIT 35.5 % (42.0-52.0); HEMOGLOBIN 12.7 gm/dL (14.0-18.0); LYMPHOCYTES 13.9 %; MCH 32.8 pg (26.0-34.0); MCHC 35.9 g/dL (28.0-37.0); MCV 91.6 fL (80.0-100.0); MONOCYTES 4.1 %; NUCLEATED RBCS 0 /100WBC; PLATELET COUNT* 200 thou/uL (150-400); RBC 3.88 mil/uL (4.50-6.00); RDW-CV 12.8 % (10.5-14.5); WBC 7.6 thou/uL (4.0-11.0)
[2020-09-20 11:35] LABS: CREATININE 1.1 mg/dL (0.6-1.3); POTASSIUM 3.5 mmol/L (3.5-5.1)
[2020-09-20 11:40] LABS: ALBUMIN 3.3 g/dL (3.4-5.0); TOTAL BILIRUBIN 0.6 mg/dL (<0.1-1.0); TOTAL PROTEIN 6.6 g/dL (6.4-8.2)
--- NOTE | 2020-09-20 12:21 | EKG ---
[place] [address] ELECTROCARDIOGRAM REPORT Name: PATRICKJESSICA FELICIANO Room: [address] M.R.#: [id number] Admission: 09/20/20 Attend Phys: Marquis Castro Discharge: Date of : 58 Date of Service: 09/20/20 1109 Report #: [id number] THIS REPORT FOR: //name// [facility] ED Test Date: 2020-09-20 Test Time: 11:09:11 Pat Name: JESSICA NGUYEN Department: Room: [facility] Gender: M Electrical Drafter: LYN : 1960 Requested By: Verna Menjivar Order Number: [id number] MD: Rafi Fuentes Measurements Intervals [place] Rate: 65 P: 35 [place]: 180 QRS: -29 QRSD: 104 T: -26 QT: 396 QTc: 412 Interpretive Statements Sinus rhythm Inferior infarct, age indeterminate Compared to ECG 09/18/2020 09:40:08 No significant changes Electronically Signed On 09-20-2020 12:21:11 CDT by Rafi Fuentes [email or web address] <ELECTRONICALLY SIGNED> By: Rafi Fuentes MD, FAC 09/20/20 1221 1109 1109 Rafi Fuentes MD, [facility] /EPI
[2020-09-20 16:00] VITALS: BP 124/63
[2020-09-20 20:00] VITALS: BP 116/61; BP 140/48
[2020-09-20 23:50] VITALS: BP 110/60
[2020-09-21 01:07] VITALS: BP 105/64
[2020-09-21 05:16] VITALS: BP 131/82
[2020-09-21 06:27] LABS: HEMATOCRIT 35.1 % (42.0-52.0); HEMOGLOBIN 12.6 gm/dL (14.0-18.0); MCH 33.3 pg (26.0-34.0); MCV 92.6 fL (80.0-100.0); MPV 8.2 fl. (7.2-11.1); RBC 3.79 mil/uL (4.50-6.00); RDW-CV 12.4 % (10.5-14.5); WBC 8.9 thou/uL (4.0-11.0)
[2020-09-21 06:34] LABS: CALCIUM 8.3 mg/dL (8.5-10.1); CREATININE 1.1 mg/dL (0.6-1.3); POTASSIUM 4.1 mmol/L (3.5-5.1)
[2020-09-21 09:27] VITALS: BP 116/62
[2020-09-21 12:00] VITALS: BP 112/61
[2020-09-21 16:03] VITALS: BP 112/61
--- NOTE | 2020-09-21 16:34 | NUR ---
Reviewed discharge teaching with patient and ; verbalized understanding. IV and quality assurance monitor body dc'd. Discharged from unit per WC.
--- NOTE | 2020-09-22 17:12 | CON ---
[address] [address] CONSULTATION Name: JESSICA NGUYEN Room: [address] Nicole Quintana#: [id number] Admission: 09/20/20 Attend Phys: Hubert Moreno Discharge: 09/21/20 Date of : 58 Report #: [id number] THIS REPORT FOR: cc: Bello Finnegan MD, Bruce D. MD Blick, David R. MD [facility] ~ cc: Bello Finnegan MD DATE OF CONSULTATION: 09/20/2020 CARDIOLOGY CONSULTATION PRIMARY CARE PHYSICIAN: Bello Finnegan MD HISTORY OF PRESENT ILLNESS: The patient 60-year-old white male who I was asked to see in the Emergency Room today after he complained of lightheadedness. The patient had a previous history of high blood pressure. He had previously been on amlodipine, chlorthalidone and ramipril. The patient was admitted to [place] two weeks ago with an acute myocardial infarction. Dr. Moyer placed two coronary stents. The patient was placed on Effient and aspirin. He was started on Lipitor and metoprolol. He was taken off of amlodipine and ramipril. He was told to continue chlorthalidone. He was then started on lisinopril. The patient was readmitted this week for elective implantation of two additional coronary stents. He was just discharged two days ago. Since his myocardial infarction, he denies any chest pressure, shortness of breath, palpitations. Today after breakfast, he felt lightheaded and became diaphoretic. His took his blood pressure and it was high. Paramedics were called. He was brought here to [place] for further evaluation and treatment. He denied any bleeding, fever, vomiting, diarrhea. PAST MEDICAL HISTORY: He has had a tonsillectomy. He has a long history of hypertension. No diabetes. CURRENT MEDICATIONS: Include Effient, aspirin, metoprolol, Lipitor, lisinopril, chlorthalidone. He is no longer on amlodipine and ramipril. ALLERGIES: HE HAD A PREVIOUS REACTION TO IV CONTRAST. FAMILY HISTORY: His mother had heart disease. SOCIAL HISTORY: He is . His lives in [place]. He runs a pest control business. No smoking, alcohol abuse. REVIEW OF SYSTEMS: He apparently does snore at night. No history of stroke, asthma, liver disease, kidney disease, cancer, psychiatric illness, [place] [address] CONSULTATION Name: JESSICA NGUYEN [address]: [address] [id number] Admission: 09/20/20 Attend Phys: Hubert Moreno Discharge: 09/21/20 Date of : 58 Report #: [id number] condition, arthritis. PHYSICAL EXAMINATION: GENERAL: Revealed a middle-aged male who appeared in no distress. VITAL SIGNS: He had a blood pressure of 128/60, pulse 66. He was afebrile. HEENT: He was anicteric. Conjunctivae pink. Mucous membranes moist. NECK: Veins did not appear distended. No carotid bruits. Neck was supple. CHEST: Clear to auscultation. CARDIAC: Regular rate and rhythm. No murmurs. ABDOMEN: Soft. EXTREMITIES: Had no edema. Dorsalis pedis pulse 3+ bilaterally. SKIN: Cool and dry. NEUROLOGIC: Nonfocal. LABORATORY DATA: ECG showed a sinus rhythm. There is evidence of previous inferior infarction. There is no acute ST or T-wave change noted. His workup, the patient had a portable chest x-ray performed this morning in the Emergency Room that showed normal heart size, clear lung wesley. The patient had an echocardiogram performed two weeks ago that showed normal left ventricular function. His lab work this morning, potassium 3.5, creatinine 1.1. His troponin was 0.26, it was 0.85 two days ago following the stent. His cholesterol was 124, triglyceride 211, HDL 32, LDL 50. His recent hemoglobin A1c was 5.8. His white blood cell count 7.6, hemoglobin 12.7. His COVID antigen stat test on the was negative. IMPRESSION AND RECOMMENDATIONS: 1. Lightheadedness and dizzy, reason unclear. Recommend admitted overnight to rule out any arrhythmia. 2. Recent coronary stenting. No significant angina. Troponin appears to be trending downward. Continue aspirin and Effient. 3. Hypertension. The patient is on beta luis felipe and DENNIS inhibitor and diuretic. 4. Glucose intolerance. <ELECTRONICALLY SIGNED> By: Rafi Fuentes MD, [facility] 09/22/20 1712 1110 1227Davihubert Fuentes MD, FAC /nt
== END 2020-09-21 16:34 | disposition home or self-care (01) ==
LOC: M.ERS 10:56 → M.TBA-ER 12:06 → M.2W 09-21
PROVIDERS: Family Medicine; Physician Assistant; ADMIT Internal Medicine; ATTEND Internal Medicine
DX: R07.89 Other chest pain (principal); R42 Dizziness and giddiness; Z20.822 Contact with and (suspected) exposure to COVID-19; I25.110 Atherosclerotic heart disease of native coronary artery with unstable angina pectoris; E78.5 Hyperlipidemia, unspecified; E66.9 Obesity, unspecified; I10 Essential (primary) hypertension; F41.9 Anxiety disorder, unspecified; I25.2 Old myocardial infarction; Z68.39 Body mass index [BMI] 39.0-39.9, adult; Z79.82 Long term (current) use of aspirin; Z79.899 Other long term (current) drug therapy